=== PATIENT | male | born 1965 | race Caucasian/White ===

== ENCOUNTER 2018-01-16 17:58 | Emergency (ER) | payer OTHER ==
[2018-01-16] MEDS ORDERED: NS 0.9% 1000 ML*IV.FLUID IV ONE (18:27)
[2018-01-16] MEDS ORDERED: Clindamycin 600 MG IVPREMIX(* 600 MG/50 ML SDV IV ONE (19:01)
[2018-01-16] MEDS ORDERED: Ibuprofen TAB* 800 MG PO ONE (19:03)
[2018-01-16 19:38] LABS: ABS Basophils 0 10^3/ul (0-0.2); ABS Eosinophils 0 10^3/ul (0-0.6); ABS Lymphocytes 0.8 10^3/ul (1.0-4.8); ABS Monocytes 0.5 10^3/ul (0-0.8); ABS Neutrophils 6.8 10^3/ul (1.5-7.7); ABS Nucleated RBC 0 10^3/ul; Eosinophil % 0.3 % (0-6); Hematocrit 40 % (42-52); Hemoglobin 13.7 g/dl (14.0-18.0); Lymphocyte % 9.4 % (25-47); Mean Corpuscular HGB Conc 34 g/dl (31-36); Mean Corpuscular Hemoglobin 29 pg (27-31); Mean Corpuscular Volume 85 fL (80-94); Mean Platelet Volume 9.6 um3 (7.4-10.4); Nucleated Red Blood Cells % 0; Platelet Count 145 10^3/ul (150-450); Red Blood Count 4.68 10^6/ul (4.0-5.4); Red Cell Distribution Width 14 % (10.5-15); White Blood Count 8.1 10^3/ul (3.5-10.8)
[2018-01-16 19:43] LABS: Urine Appearance Clear; Urine Blood Negative (Negative); Urine Color Amber; Urine Ketones Trace (Negative); Urine Protein 1+(30 mg/dL) (Negative); Urine Specific Gravity 1.034 (1.010-1.030); Urine Urobilinogen Positive (Negative)
[2018-01-16 19:47] LABS: INR 1.2 (0.77-1.02)
--- NOTE | 2018-01-16 19:55 | RAD ---
HISTORY: Right leg swelling COMPARISONS: None relevant TECHNIQUE: Multiple transverse and longitudinal ultrasound images were obtained of the right lower extremity from the level of the common femoral vein inferiorly through to the infrapopliteal veins using grayscale, color Doppler, and spectral Doppler imaging with and without compression and with augmentation. Comparison images were obtained of the contralateral common femoral vein. FINDINGS: VEINS: The venous system of the right lower extremity is compressible throughout its course, with normal flow on color Doppler imaging and normal response to augmentation on spectral Doppler imaging. SOFT TISSUES: Unremarkable. OTHER FINDINGS: None. IMPRESSION: NO RIGHT LOWER EXTREMITY DEEP VEIN THROMBOSIS
[2018-01-16 20:07] LABS: EGFR Non-African American 67.3 (>60)
--- NOTE | 2018-01-16 20:32 | RAD ---
HISTORY: Fever, chills COMPARISONS: None VIEWS: 4: Frontal dual-energy and lateral views of the chest. FINDINGS: CARDIOMEDIASTINAL SILHOUETTE: The cardiomediastinal silhouette is normal. EVANGELIST: The evangelist are normal. PLEURA: The costophrenic angles are sharp. No pleural abnormalities are noted. LUNG PARENCHYMA: The lungs are clear. ABDOMEN: The upper abdomen is clear. There is no subphrenic gas. BONES AND SOFT TISSUES: No bone or soft tissue abnormalities are noted. OTHER: None. IMPRESSION: NO ACTIVE CARDIOPULMONARY DISEASE.
--- NOTE | 2018-01-16 20:38 | ED ---
Skin Complaint - HPI Summary HPI Summary: 52 male presents with fever for the past 2 days. He states that he noticed a spreading rash on his right leg. He has history of pitting edema in his legs. He has been taking tyenlol. He admits to an occasional cough. He denies any chest pain or shortness breath. Denies any sore throat. He denies any nausea vomiting diarrhea or abdominal pain. He denies any pain with urination. He has a history of peripheral vascular disease as well as discoloration chronic. He has noticed some edema of his right leg has increased over the past day. He denies any history of cellulitis. No history of MRSA. He did scrape his lower leg a week ago and he noticed some pus drainage from his lower leg on his right yesterday. - History of Current Complaint Chief Complaint: EDSoftTissueLowExtr Time Seen by Provider: 01/16/18 18:27 Stated Complaint: FEVER/CHILLS Pain Intensity: 2 - Allergy/Home Medications Allergies/Adverse Reactions: Allergies Allergy/AdvReac Type Severity Reaction Status Date / Time acetaminophen [From Percocet] Allergy Vomiting Verified 01/16/18 18:09 gabapentin Allergy Unknown Verified 01/16/18 18:10 Reaction Details hydrocodone Allergy Unknown Verified 01/16/18 18:10 Reaction Details meperidine [From Demerol] Allergy Unknown Verified 01/16/18 18:10 Reaction Details oxycodone [From Percocet] Allergy Vomiting Verified 01/16/18 18:09 Home Medications: Home Medications Amitriptyline TAB* [Elavil TAB*] 100 mg PO DAILY 01/16/18 [History Confirmed ] Atorvastatin* 20 mg PO DAILY 01/16/18 [History Confirmed 01/16/18] Fenofibrate(NF) [Tricor(NF)] 145 mg PO DAILY 01/16/18 [History Confirmed ] Nadolol TAB* [Corgard TAB*] 40 mg PO DAILY 01/16/18 [History Confirmed 01/16/18] Torsemide [Torsemide] 10 mg PO DAILY 01/16/18 [History Confirmed 01/16/18] Verapamil HCl [Verapamil Sr] 120 mg PO DAILY 01/16/18 [History Confirmed ] PMH/Surg Hx/FS Hx/Imm Hx Endocrine/Hematology History: Denies: Hx Anticoagulant Therapy Cardiovascular History: Reports: Hx Hypertension Denies: Hx Myocardial Infarction Infectious Disease History: No Infectious Disease History: Denies: Traveled Outside the [place] in Last 30 Days - Family History Known Family History: Positive: Hypertension - Social History Alcohol Use: None Substance Use Type: Reports: None Smoking Status (MU): Never Smoked Tobacco Review of Systems Positive: Fever Negative: Chest Pain Positive: Cough. Negative: Shortness Of Breath Positive: Rash All Other Systems Reviewed And Are Negative: Yes Physical Exam Triage Information Reviewed: Yes Vital Signs On Initial Exam: Initial Vitals Temp Pulse Resp BP Pulse Ox 100.6 F 95 16 140/75 95 01/16/18 18:10 01/16/18 18:10 01/16/18 18:10 01/16/18 18:10 01/16/18 18:10 Vital Signs Reviewed: Yes Appearance: Positive: Well-Appearing Skin: Positive: Warm, Dry, Other - wound on right leg with surrounding eyrthema up right alonzo Head/Face: Positive: Normal Head/Face Inspection Eyes: Positive: Normal, EOMI, IVAN, Conjunctiva Clear ENT: Positive: Normal ENT inspection, Pharynx normal, TMs normal Respiratory/Lung Sounds: Positive: Clear to Auscultation, Breath Sounds Present Cardiovascular: Positive: Normal, RRR Abdomen Description: Positive: Nontender, Soft Bowel Sounds: Positive: Present Musculoskeletal: Positive: Strength/ROM Intact - right leg, Edema Left, Edema Right, Other - good pulses Neurological: Positive: Normal Psychiatric: Positive: Normal Diagnostics - Vital Signs Vital Signs Temp Pulse Resp BP Pulse Ox 01/16/18 18:44 93 95 01/16/18 18:43 94 01/16/18 18:10 100.6 F 95 16 140/75 95 - Laboratory Lab Results: Lab Results 01/16/18 01/16/18 01/16/18 Range/Units 19:26 19:26 19:26 WBC 8.1 (3.5-10.8) 10^3/ul RBC 4.68 (4.0-5.4) 10^6/ul Hgb 13.7 L (14.0-18.0) g/dl Hct 40 L (42-52) % MCV 85 (80-94) fL MCH 29 (27-31) pg MCHC 34 (31-36) g/dl RDW 14 (10.5-15) % Plt Count 145 L (150-450) 10^3/ul MPV 9.6 (7.4-10.4) um3 Neut % (Auto) 83.2 H (38-83) % Lymph % (Auto) 9.4 L (25-47) % Payne % (Auto) 6.5 (0-7) % Eos % (Auto) 0.3 (0-6) % Baso % (Auto) 0.6 (0-2) % Absolute Neuts (auto) 6.8 (1.5-7.7) 10^3/ul Absolute Lymphs (auto) 0.8 L (1.0-4.8) 10^3/ul Absolute Monos (auto) 0.5 (0-0.8) 10^3/ul Absolute Eos (auto) 0 (0-0.6) 10^3/ul Absolute Basos (auto) 0 (0-0.2) 10^3/ul Absolute Nucleated RBC 0 10^3/ul Nucleated RBC % 0 INR (Anticoag Therapy) 1.20 H (0.77-1.02) APTT 52.5 H (26.0-36.3) seconds Sodium 134 L (139-145) mmol/L Potassium Pending Chloride 103 (101-111) mmol/L Carbon Dioxide 23 (22-32) mmol/L Anion Gap Pending BUN 17 (6-24) mg/dL Creatinine 1.15 (0.67-1.17) mg/dL Est GFR ( Amer) 86.6 (>60) Est GFR (Non-Af Amer) 67.3 (>60) BUN/Creatinine Ratio 14.8 (8-20) Glucose 113 H (70-100) mg/dL Lactic Acid (0.5-2.0) mmol/L Calcium 8.6 (8.6-10.3) mg/dL Total Bilirubin 1.30 H (0.2-1.0) mg/dL AST Pending ALT 48 (7-52) U/L Alkaline Phosphatase 54 (34-104) U/L Total Protein 6.5 (6.4-8.9) g/dL Albumin 3.6 (3.2-5.2) g/dL Globulin 2.9 (2-4) g/dL Albumin/Globulin Ratio 1.2 (1-3) Urine Color Urine Appearance Urine pH (5-9) Ur Specific [place] (1.010-1.030) Urine Protein (Negative) Urine Ketones (Negative) Urine Blood (Negative) Urine Nitrate (Negative) Urine Bilirubin (Negative) Urine Urobilinogen (Negative) Ur Leukocyte Esterase (Negative) Urine WBC (Auto) (Absent) Urine RBC (Auto) (Absent) Urine Bacteria (Absent) Urine Glucose (Negative) 01/16/18 01/16/18 Range/Units 19:26 19:29 WBC (3.5-10.8) 10^3/ul RBC (4.0-5.4) 10^6/ul Hgb (14.0-18.0) g/dl Hct (42-52) % MCV (80-94) fL MCH (27-31) pg MCHC (31-36) g/dl RDW (10.5-15) % Plt Count (150-450) 10^3/ul MPV (7.4-10.4) um3 Neut % (Auto) (38-83) % Lymph % (Auto) (25-47) % Payne % (Auto) (0-7) % Eos % (Auto) (0-6) % Baso % (Auto) (0-2) % Absolute Neuts (auto) (1.5-7.7) 10^3/ul Absolute Lymphs (auto) (1.0-4.8) 10^3/ul Absolute Monos (auto) (0-0.8) 10^3/ul Absolute Eos (auto) (0-0.6) 10^3/ul Absolute Basos (auto) (0-0.2) 10^3/ul Absolute Nucleated RBC 10^3/ul Nucleated RBC % INR (Anticoag Therapy) (0.77-1.02) APTT (26.0-36.3) seconds Sodium (139-145) mmol/L Potassium Chloride (101-111) mmol/L Carbon Dioxide (22-32) mmol/L Anion Gap BUN (6-24) mg/dL Creatinine (0.67-1.17) mg/dL Est GFR ( Amer) (>60) Est GFR (Non-Af Amer) (>60) BUN/Creatinine Ratio (8-20) Glucose (70-100) mg/dL Lactic Acid 1.0 (0.5-2.0) mmol/L Calcium (8.6-10.3) mg/dL Total Bilirubin (0.2-1.0) mg/dL AST ALT (7-52) U/L Alkaline Phosphatase (34-104) U/L Total Protein (6.4-8.9) g/dL Albumin (3.2-5.2) g/dL Globulin (2-4) g/dL Albumin/Globulin Ratio (1-3) Urine Color Ayanna Urine Appearance Clear Urine pH 6.0 (5-9) Ur Specific [place] 1.034 H (1.010-1.030) Urine Protein 1+(30 mg/dl) A (Negative) Urine Ketones Trace A (Negative) Urine Blood Negative (Negative) Urine Nitrate Negative (Negative) Urine Bilirubin Negative (Negative) Urine Urobilinogen Positive A (Negative) Ur Leukocyte Esterase Negative (Negative) Urine WBC (Auto) Trace(0-5/hpf) (Absent) Urine RBC (Auto) Trace(0-2/hpf) (Absent) Urine Bacteria Absent (Absent) Urine Glucose Negative (Negative) Result Diagrams: 01/16/18 19:26 01/16/18 19:26 Lab Statement: Any lab studies that have been ordered have been reviewed, and results considered in the medical decision making process. - Radiology chest Xray Interpretation: No Acute Changes Radiology Interpretation Completed By: Radiologist - Ultrasound No standard instances Ultrasound Interpretation: No Acute Changes Ultrasound Interpretation Completed By: Radiologist Course/Dx - Course Course Of Treatment: 52 male presents with fever for the past 2 days. He states that he noticed a spreading rash on his right leg. He has history of pitting edema in his legs. He has been taking tyenlol. He admits to an occasional cough. He denies any chest pain or shortness breath. Denies any sore throat. He denies any nausea vomiting diarrhea or abdominal pain. He denies any pain with urination. He has a history of peripheral vascular disease as well as discoloration chronic. He has noticed some edema of his right leg has increased over the past day. He denies any history of cellulitis. No history of MRSA. He did scrape his lower leg a week ago and he noticed some pus drainage from his lower leg on his right yesterday. on exam lungs CTA. has spreading cellulitis 8cm by 12cm of right leg. good pulses. chest xary normal. wbc normal. will start on clindamycin. patient understand and agrees with plan. - Differential Diagnoses - Skin Complaint Differential Diagnoses: Abscess, Cellulitis, Contact Dermatitis - Diagnoses Provider Diagnoses: Cellulitis of right leg Discharge - Sign-Out/Discharge Documenting (check all that apply): Discharge/Admit/Transfer - Discharge Plan Condition: Good Disposition: HOME Prescriptions: Clindamycin Cap(NF) [Clindamycin Cap 300 mg Cap(NF)] 300 mg PO TID #29 cap Patient Education Materials: Cellulitis (ED) Referrals: Jose Fan MD [Primary Care Provider] - Additional Instructions: Take clindamycin three times a day for 10 days Elevate, ice Take tyenlol or ibuprofen every 6 hours for fever Return to ED if develop fever, spreading redness after two days on antibiotics or any new or worsening symptoms - Billing Disposition and Condition Condition: GOOD Disposition: HOME
[2018-01-16 22:54] VITALS: BP 135/68
== END 2018-01-16 22:55 | disposition home or self-care (01) ==
LOC: ED 17:58
DX: L03.115 Cellulitis of right lower limb (principal); R05 Cough; R60.0 Localized edema; I73.9 Peripheral vascular disease, unspecified; Z88.8 Allergy status to other drugs, medicaments and biological substances; Z88.5 Allergy status to narcotic agent
CPT/HCPCS: 36415; 71046; 80053; 81003; 81015; 83605; 85025; 85610; 85730; 87040; 87086; 96361; 96365; 99281; A9270-GY

== ENCOUNTER 2018-01-22 08:11 | Emergency (ER) | payer OTHER ==
[2018-01-22 08:59] LABS: Hematocrit 42 % (42-52); Hemoglobin 14.2 g/dl (14.0-18.0); Mean Corpuscular HGB Conc 34 g/dl (31-36); Mean Corpuscular Hemoglobin 29 pg (27-31); Mean Corpuscular Volume 86 fL (80-94); Mean Platelet Volume 8.4 um3 (7.4-10.4); Platelet Count 200 10^3/ul (150-450); Red Blood Count 4.89 10^6/ul (4.0-5.4); Red Cell Distribution Width 14 % (10.5-15); White Blood Count 5.5 10^3/ul (3.5-10.8)
[2018-01-22 09:43] LABS: ABS Basophils 0 10^3/ul (0-0.2); ABS Eosinophils 0.2 10^3/ul (0-0.6); ABS Lymphocytes 1.6 10^3/ul (1.0-4.8); ABS Monocytes 0.7 10^3/ul (0-0.8); ABS Nucleated RBC 0 10^3/ul
[2018-01-22 09:46] LABS: Monocytes % 6 % (0-7)
--- NOTE | 2018-01-22 11:08 | ED ---
Joe Cam Gabriel, scribed for Ritesh Valdovinos MD on 01/22/18 at 0903 . Lower Extremity - HPI Summary HPI Summary: This patient is a 52 year old M presenting to [facility] accompanied by family with a chief complaint of increasing erythema due to cellulitis on the RLE that he was seen for on 01-16-18. Pt was seen on 01-16-18 and given clindamycin and was told if it began to spread to return for an increased dose of clinda. Pt states it began with a scrap on his leg that became infected. The patient rates the pain 0/10 in severity. Patient reports increased edema from baseline, erythema, and states the area is warm. Patient denies pain. - History of Current Complaint Chief Complaint: EDExtremityLower Stated Complaint: SWOLLEN LEG/CELLULITIS Time Seen by Provider: 01/22/18 08:24 Hx Obtained From: Patient Mechanism Of Injury: Unknown Severity Currently: None Pain Intensity: 0 Pain Scale Used: 0-10 Numeric Timing: Constant Associated Signs And Symptoms: Positive: Swelling, Redness Able to Bear Weight: Yes - Allergies/Home Medications Allergies/Adverse Reactions: Allergies Allergy/AdvReac Type Severity Reaction Status Date / Time acetaminophen [From Percocet] Allergy Vomiting Verified 01/22/18 08:12 gabapentin Allergy Unknown Verified 01/22/18 08:12 Reaction Details hydrocodone Allergy Unknown Verified 01/22/18 08:12 Reaction Details meperidine [From Demerol] Allergy Unknown Verified 01/22/18 08:12 Reaction Details oxycodone [From Percocet] Allergy Vomiting Verified 01/22/18 08:12 Home Medications: Home Medications Acetaminophen TAB* [Tylenol TAB*] 650 mg PO Q6H PRN 01/22/18 [History Confirmed 01/22/18] Atorvastatin* [Lipitor*] 20 mg PO DAILY 01/22/18 [History Confirmed 01/22/18] Butalb/Acetaminophen/Caffeine [Butalbital/Acetaminophen/ 50-325-40 mg-] 1 cap PO Q6H PRN 01/22/18 [History Confirmed 01/22/18] Torsemide TAB* [Demadex*] 10 mg PO DAILY 01/22/18 [History Confirmed 01/22/18] PMH/Surg Hx/FS Hx/Imm Hx Endocrine/Hematology History: Denies: Hx Anticoagulant Therapy Cardiovascular History: Reports: Hx Hypercholesterolemia, Hx Hypertension Denies: Hx Myocardial Infarction Neurological History: Denies: Hx CVA Infectious Disease History: No Infectious Disease History: Denies: Traveled Outside the [place] in Last 30 Days - Family History Known Family History: Positive: Hypertension - Social History Alcohol Use: None Substance Use Type: Reports: None Smoking Status (MU): Never Smoked Tobacco Review of Systems Positive: Edema Skin: Other - redness All Other Systems Reviewed And Are Negative: Yes Physical Exam - Summary Physical Exam Summary: Appearance: The patient is well-nourished in no acute distress and in no acute pain. Skin: There chronic venous stasis changes HEENT: The head is normocephalic and atraumatic. The pupils are equal and reactive. The conjunctivae are clear and without drainage. Nares are patent and without drainage. Mouth reveals moist mucous membranes and the throat is without erythema and exudate. The external ears are intact. The ear canals are patent and without drainage. The tympanic membranes are intact. Neck: the neck is supple with full range of motion and non-tender. There are no carotid bruits. There is no neck vein distension. Respiratory: Chest is non-tender. Lungs are clear to auscultation and breath sounds are symmetrical and equal. Cardiovascular: Heart is regular rate and rhythm. There is no murmur or rub auscultated. There is pitting edema and pulses are symmetrical and equal. Abdomen: The abdomen is soft and non-tender. There are normal bowel sounds heard in all four quadrants and there is no organomegaly palpated. Musculoskeletal: There is no back tenderness noted. Extremities are non-tender with full range of motion. There is good capillary refill. There is pitting edema or calf tenderness elicited. Bilateral LEs are non-tender Neurological: Patient is alert and oriented to person, place and time. The patient has symmetrical motor strength in all four extremities. Cranial nerves are grossly intact. Deep tendon reflexes are symmetrical and equal in all four extremities. Psychiatric: The patient has an appropriate affect and does not exhibit any anxiety or depression. Triage Information Reviewed: Yes Vital Signs On Initial Exam: Initial Vitals Temp Pulse Resp BP Pulse Ox 97.5 F 73 18 188/95 98 01/22/18 08:15 01/22/18 08:15 01/22/18 08:15 01/22/18 08:15 01/22/18 08:15 Vital Signs Reviewed: Yes Diagnostics - Vital Signs Vital Signs Temp Pulse Resp BP Pulse Ox 01/22/18 08:15 97.5 F 73 18 188/95 98 - Laboratory Lab Results: Lab Results 01/22/18 01/22/18 Range/Units 08:46 08:46 WBC 5.5 (3.5-10.8) 10^3/ul RBC 4.89 (4.0-5.4) 10^6/ul Hgb 14.2 (14.0-18.0) g/dl Hct 42 (42-52) % MCV 86 (80-94) fL MCH 29 (27-31) pg MCHC 34 (31-36) g/dl RDW 14 (10.5-15) % Plt Count 200 (150-450) 10^3/ul MPV 8.4 (7.4-10.4) um3 Neut % (Auto) Not Reportable Lymph % (Auto) Not Reportable [place] % (Auto) Not Reportable Eos % (Auto) Not Reportable Baso % (Auto) Not Reportable Absolute Neuts (auto) 3.0 (1.5-7.7) 10^3/ul Absolute Lymphs (auto) 1.6 (1.0-4.8) 10^3/ul Absolute Monos (auto) 0.7 (0-0.8) 10^3/ul Absolute Eos (auto) 0.2 (0-0.6) 10^3/ul Absolute Basos (auto) 0 (0-0.2) 10^3/ul Absolute Nucleated RBC 0 10^3/ul Immature Gran % 2 (0-9) % Neutrophils % 54 (38-83) % Lymphocytes % 36 (25-47) % Monocytes % 6 (0-7) % Eosinophils % 2 (0-6) % Basophils % 0 (0-2) % Myelocytes % 2 H (0-1) % Nucleated RBC % Abs Neuts (Manual) 3.0 (1.5-7.7) 10^3/ul Abs Lymphs (Manual) 2.0 (1.0-4.8) 10^3/ul Abs Monocytes (Manual) 0.3 (0-0.8) 10^3/ul Absolute Eos (Manual) 0.1 (0-0.6) 10^3/ul Abs Basophils (Manual) 0 (0-0.2) 10^3/ul Normal RBC Morphology Normal (Normal) C-Reactive Protein 17.91 H (< 5.00) mg/L Result Diagrams: 01/22/18 08:46 Lab Statement: Any lab studies that have been ordered have been reviewed, and results considered in the medical decision making process. Lower Extremity Course/Dx - Course Course Of Treatment: Mr. Bronson presented to the emergency department complaining of increased swelling and redness to his right lower leg. He had been seen here in the emergency department 6 days previously and started on clindamycin and then followed with his PCP last night who advised him to go to the emergency department. He has no pain and his swelling worsens by the end of each day. On exam she was nontender, has chronic venous stasis changes in both legs and has significant pitting edema. My impression was that this was an edema problem and that the antibiotics had done their job. He had no leukocytosis, fever and had only a slight CRP elevation of 13. He is on torsemide 10 mg a day and I am going to double that to 20 a day and have him follow-up with Dr. Fan. - Diagnoses Provider Diagnoses: Peripheral edema Discharge - Sign-Out/Discharge Documenting (check all that apply): Discharge/Admit/Transfer - Discharge Plan Condition: Stable Disposition: HOME Prescriptions: Torsemide TAB* [Demadex 20 MG*] 20 mg PO DAILY #30 tab Patient Education Materials: Torsemide (By mouth), Leg Edema (ED) Referrals: Jose Fan MD [Primary Care Provider] - 4 Days Additional Instructions: RETURN TO THE EMERGENCY DEPARTMENT FOR CHANGING OR WORSENING SYMPTOMS - Billing Disposition and Condition Condition: STABLE Disposition: HOME The documentation as recorded by the Joe bhatt Gabriel accurately reflects the service I personally performed and the decisions made by me, Ritesh Valdovinos MD.
[2018-01-22 11:38] VITALS: BP 185/96
== END 2018-01-22 11:36 | disposition home or self-care (01) ==
LOC: ED 08:11
DX: R60.0 Localized edema (principal); Z88.5 Allergy status to narcotic agent; Z88.6 Allergy status to analgesic agent
CPT/HCPCS: 36415; 85025; 86140; 99282